=== PATIENT | female | born 1980 | race Two or more races ===

== ENCOUNTER 2021-04-02 04:01 | Emergency (ER) | payer OTHER ==
[~2021-04-02] VITALS: Ht 170.2 cm; Wt 56.7 kg
--- NOTE | 2021-04-02 04:13 | NUR ---
[employer] IN CUSTODY FOR RAPID COVID TEST. PER PT, SHE HAD CLOSE CONTACT WITH HER BOYFRIEND WHO TESTED POSITIVE TODAY. PT REPORTS MILD "FLU SYMPTOMS" BREATHING IS EVEN AND UNLABORED 02 SAT 99% RA. PLACED ON MONITOR AND ALL V/S STABLE.
--- NOTE | 2021-04-02 04:28 | NUR ---
COVID SWAB COLLECTED AND SENT TO LAB
--- NOTE | 2021-04-02 04:59 | NUR ---
PT discharged in [employer] custody. Written and verbal after care instructions given. Patient verbalizes understanding of instruction. All v/s stable at discharge.
[2021-04-02 05:01] VITALS: BP 133/93
== END 2021-04-02 05:01 ==
LOC: ER 04:04
DX: Z02.89 Encounter for other administrative examinations (principal); Z20.822 Contact with and (suspected) exposure to COVID-19; I10 Essential (primary) hypertension; J45.909 Unspecified asthma, uncomplicated; F31.9 Bipolar disorder, unspecified; F17.200 Nicotine dependence, unspecified, uncomplicated
CPT/HCPCS: 87426; 99283; C9803